=== PATIENT | male | born 1975 | race Hispanic/Latino ===

== ENCOUNTER 2017-03-26 03:47 | Emergency (ER) | payer OTHER ==
[2017-03-26 03:58] VITALS: BP 129/89; PULSE 61; RESP 17; TEMP 98; O2SAT 99; BMI 28.3
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
== END 2017-03-26 04:35 | disposition home or self-care (01) ==
LOC: ED 03:47
DX: M54.9 Dorsalgia, unspecified (principal)